=== PATIENT | male | born 1955 | race Caucasian/White ===

== ENCOUNTER 2023-02-13 10:36 | Inpatient (IN) | payer MEDICARE, BC ==
[2023-02-13] VITALS (12 sets, daily range): BP systolic 110–146; BP diastolic 54–100; PULSE 58–60; TEMP 97.7–97.9
[~2023-02-13] VITALS: Ht 185.4 cm; Wt 153.9 kg
[2023-02-13 11:04] LABS: BASO # 0.1 K/mm3 (0.0-0.2); EOS # 0.4 K/mm3 (0.0-0.7); EOS % 3.9 % (0.0-4.0); GRAN # 5.4 K/mm3 (1.4-6.5); GRAN % 51.5 % (42.2-75.2); HEMOGLOBIN 16.1 g/dl (13.5-18.0); LYMPH # 3.7 K/mm3 (1.2-3.4); LYMPH % 35.7 % (20.0-51.0); MEAN CELL VOLUME 93 fl (80.0-100.0); MEAN CORPUSCULAR HEMOGLOBIN 31 pg (27-31); MEAN CORPUSCULAR HGB CONC 34 g/dl (33.0-37.0); MEAN PLATELET VOLUME 10.8 fl (7.4-10.4); MONO # 0.8 K/mm3 (0.1-0.6); MONO % 7.6 % (1.7-9.3); PLATELET COUNT 201 K/mm3 (130-400); RED BLOOD COUNT 5.19 M/mm3 (4.20-5.60); REDCELL DISTRIBUTION WIDTH-CV 13.4 % (11.5-14.5)
[2023-02-13 11:08] LABS: PROTHROMBIN TIME 10.7 SECONDS (9.7-12.8)
[2023-02-13 11:14] LABS: ALBUMIN 4.1 gm/dL (3.4-4.8); BILIRUBIN,TOTAL 0.6 mg/dL (0.2-1.2); CALCIUM 9.6 mg/dL (8.4-10.2); CREATININE, serum 1.2 mg/dL (0.72-1.25); POTASSIUM 4.6 mmol/L (3.5-4.5); TOTAL PROTEIN 7.1 gm/dL (6.2-8.1)
[2023-02-13 11:19] LABS: TROPONIN-I 0.012 ng/mL (0.00-0.033)
[2023-02-13 12:05] LABS: PARTIAL THROMBOPLASTIN TIME 31.1 SECONDS (26.0-37.0)
[2023-02-13] MEDS ORDERED: ZOCOR 40MG40 MG PO (15:22)
[2023-02-13] MEDS ORDERED: TRENTAL 400MG400 MG PO (16:04)
[2023-02-13] MEDS ORDERED: TENORMIN 5050 MG/TAB PO (16:04)
[2023-02-13] MEDS ORDERED: MOBIC15 MG PO (16:04)
--- NOTE | 2023-02-13 17:39 | NUR ---
Most recent HepXa at goal. Heparin continues to infuse at 23ml/hr per protocol.
--- NOTE | 2023-02-13 17:50 | NUR ---
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 SR. VSS. Heparin infusing at 23ml/hr to LAC without s/s complications.
--- NOTE | 2023-02-13 19:00 | NUR ---
PT RESTING IN BED. FAMILY BEDSIDE. PT IS AXOX4. PT IS ON RA. PT IS SR ON TELE. PT ON HEPARIN DRIP AT 2300UNITS/HR, NEXT XA AT 2300. PT HAS CALL LIGHT AND INSTUCTED TO CALL WITH ALL NEEDS. PT EDUCATED ON NPO AT MIDNIGHT AND STRESS TEST IN AM.
--- NOTE | 2023-02-13 20:06 | NUR ---
CHF notebook reviewed and provided to patient. The patient also takes meloxicam for OA- educated patient on NSAID use with anticoagulants-verbalizes understanding. Family at bedside.
[2023-02-14] VITALS (17 sets, daily range): BP systolic 116–166; BP diastolic 69–91; PULSE 59–77; TEMP 97.3–97.9
[2023-02-14 06:53] LABS: BASO # 0.1 K/mm3 (0.0-0.2); EOS # 0.3 K/mm3 (0.0-0.7); EOS % 3.7 % (0.0-4.0); GRAN # 3.9 K/mm3 (1.4-6.5); GRAN % 51.7 % (42.2-75.2); HEMATOCRIT 39.9 % (42.0-52.0); LYMPH # 2.8 K/mm3 (1.2-3.4); LYMPH % 36.5 % (20.0-51.0); MEAN CELL VOLUME 94 fl (80.0-100.0); MEAN CORPUSCULAR HEMOGLOBIN 31 pg (27-31); MEAN CORPUSCULAR HGB CONC 33 g/dl (33.0-37.0); MONO # 0.5 K/mm3 (0.1-0.6); MONO % 6.8 % (1.7-9.3); PLATELET COUNT 167 K/mm3 (130-400); RED BLOOD COUNT 4.26 M/mm3 (4.20-5.60); REDCELL DISTRIBUTION WIDTH-CV 13.7 % (11.5-14.5)
[2023-02-14 07:12] LABS: CREATININE, serum 0.88 mg/dL (0.72-1.25); MAGNESIUM 2.1 mg/dL (1.6-2.6); POTASSIUM 4.3 mmol/L (3.5-4.5)
[2023-02-14 07:17] LABS: HEMOGLOBIN 13.1 g/dl (13.5-18.0)
--- NOTE | 2023-02-14 09:43 | NUR ---
Initial visit attempt; Patient out for Tests, [employer] spoke with his and daughter. Col[employer]ch wished Jairo well and let them all know [employer] is available for their family as well. The family thanked [employer] for looking in on all of them.
--- NOTE | 2023-02-14 13:37 | NUR ---
bone worker met with patient, his and his daughter to discuss discharge planning. Patient lives in [place] with his , Machelle, P# [phone], patient would like his daughter as secondary contact, Faye P# [phone]. PCP is Dr. Domingo, Pharmacy is [facility]. Patient has no issues affording medications at this time. Insurance is Medicare A & B and Blue Cross Blue Shield. Patient does not have a DPOA-HC and considered completing one during his hospital stay but ultimately decided to wait until he meets with his health care attorney to complete it at the same time as his living will. Patient does not have any current DME but reports he needs a CPAP. Patient reports he had a sleep study prior to the hospital stay. Patient reports he is independent with ADLS and has a form of transportation to get to and from appointments. Patient would like to return home at time of discharge. SW contacted home medical to determine if he would be able to order a CPAP during his hospital stay. Patient will need to have had the sleep study in the last year, PCP or doctor order for the CPAP and they would need to see the results of the CPAP for him to receive one. SW will follow up with the patient regarding this information. Discharge Plan: Home
--- NOTE | 2023-02-14 20:30 | NUR ---
Initial shift assessment done- denies pain, denies SOB, tele on -NSR, Up in room on own- QTC was 466 this am,, sotalol dose given tonight- no requests, does not want a snack tonight-
[2023-02-15] VITALS (12 sets, daily range): BP systolic 112–136; BP diastolic 64–78; PULSE 59–64; TEMP 97.5–98.4
--- NOTE | 2023-02-15 05:04 | NUR ---
Quiet night, VSS, no requests.
[2023-02-15 06:57] LABS: BASO # 0.1 K/mm3 (0.0-0.2); BASO % 0.7 % (0.0-2.0); EOS # 0.2 K/mm3 (0.0-0.7); EOS % 3.5 % (0.0-4.0); GRAN # 3.7 K/mm3 (1.4-6.5); GRAN % 54.2 % (42.2-75.2); HEMATOCRIT 40.4 % (42.0-52.0); HEMOGLOBIN 13.3 g/dl (13.5-18.0); LYMPH # 2.3 K/mm3 (1.2-3.4); LYMPH % 32.8 % (20.0-51.0); MEAN CELL VOLUME 94 fl (80.0-100.0); MEAN CORPUSCULAR HEMOGLOBIN 31 pg (27-31); MEAN CORPUSCULAR HGB CONC 33 g/dl (33.0-37.0); MEAN PLATELET VOLUME 11.9 fl (7.4-10.4); MONO # 0.6 K/mm3 (0.1-0.6); MONO % 8.7 % (1.7-9.3); PLATELET COUNT 158 K/mm3 (130-400); RED BLOOD COUNT 4.32 M/mm3 (4.20-5.60); REDCELL DISTRIBUTION WIDTH-CV 13.5 % (11.5-14.5)
[2023-02-15 07:24] LABS: CALCIUM 9.1 mg/dL (8.4-10.2); CREATININE, serum 0.9 mg/dL (0.72-1.25); MAGNESIUM 2.1 mg/dL (1.6-2.6); POTASSIUM 4.2 mmol/L (3.5-4.5)
[2023-02-15] MEDS ORDERED: BETAPACE 80MG80 MG PO (07:59)
[2023-02-15] MEDS ORDERED: COZAAR 50MG50 MG/TAB PO (08:00)
[2023-02-15] MEDS ORDERED: ELIQUIS 5MG PO (08:00)
--- NOTE | 2023-02-15 15:04 | NUR ---
Reviewed CHF Zones and when to call MD. Reviewed daily weights/dry weight/ and when to call MD with 2-3lb weight gain overnight or 5+lbs in a week. Discussed qualifications for outpatient cardiac rehab. Patient is interested. F/u with [facility] - Cardiology/ Dr. Diaz. Staff will f/u in 2-3 weeks to schedule (must wait 6 weeks due to Medicare- insurance). Patient agreeable.
--- NOTE | 2023-02-15 16:36 | NUR ---
stock house worker contacted patient in regards to a sleep study. Patient reports he did not have a sleep study within the last year. SW expressed home medical informed her that he would need a valid sleep study completed within an year with a doctor's order so they could fill the CPAP order. Patient understood and he would be in contact with his PCP to complete an additional sleep study. kosta has no further questions or concerns.
--- NOTE | 2023-02-15 20:30 | NUR ---
Initial shift assessment done-- denies pain/palpitatione/SOB. States doing fine. tele on- sinus,, Did have a small snack tonight before bed-- no requests, very pleasant, ready to go home!
[2023-02-16 00:34] VITALS: BP_SYST 135
[2023-02-16 03:30] VITALS: BP 134/82; PULSE 59; TEMP 97.5
[2023-02-16 04:20] VITALS: BP_SYST 134
--- NOTE | 2023-02-16 05:20 | NUR ---
No changes, VSS
[2023-02-16 06:54] LABS: BASO # 0.1 K/mm3 (0.0-0.2); BASO % 0.8 % (0.0-2.0); EOS # 0.3 K/mm3 (0.0-0.7); EOS % 3.5 % (0.0-4.0); GRAN # 4.2 K/mm3 (1.4-6.5); HEMATOCRIT 40.1 % (42.0-52.0); HEMOGLOBIN 13.5 g/dl (13.5-18.0); LYMPH # 2.5 K/mm3 (1.2-3.4); LYMPH % 32.2 % (20.0-51.0); MEAN CELL VOLUME 93 fl (80.0-100.0); MEAN CORPUSCULAR HEMOGLOBIN 31 pg (27-31); MEAN CORPUSCULAR HGB CONC 34 g/dl (33.0-37.0); MEAN PLATELET VOLUME 11.8 fl (7.4-10.4); MONO # 0.6 K/mm3 (0.1-0.6); MONO % 8.2 % (1.7-9.3); PLATELET COUNT 155 K/mm3 (130-400); RED BLOOD COUNT 4.31 M/mm3 (4.20-5.60); REDCELL DISTRIBUTION WIDTH-CV 13.4 % (11.5-14.5)
[2023-02-16 07:15] LABS: CALCIUM 9.4 mg/dL (8.4-10.2); CREATININE, serum 0.85 mg/dL (0.72-1.25); MAGNESIUM 2.1 mg/dL (1.6-2.6); POTASSIUM 4.4 mmol/L (3.5-4.5)
[2023-02-16 07:42] VITALS: BP 165/92; PULSE 60; TEMP 97.7
[2023-02-16 08:22] VITALS: BP_SYST 165
--- NOTE | 2023-02-16 08:33 | NUR ---
PT DOING WELL THIS MORNING SITTING IN RECLINER ON ASSESSMENT. REMAINS ON TELE SHOWING HEART RATE 65 AND PACED. QTC THIS MORNING WAS 454, SOTALOL GIVEN. PT STATED HE IS READY TO GO HOME TODAY AND IS FEELING WELL.
--- NOTE | 2023-02-16 10:46 | NUR ---
ALL DISCHARGE INSTRUCTIONS AND EDUCATION REVIEWED WITH PT, ALL QUESTIONS ANSWERED AT THAT TIME. IV SITE TO LEFT AC WAS DISCONTINUED, CATHETER TIP INTACT. TELEMETRY BOX WAS DISCONNECTED FROM PT. PT WAS ESCORTED OUT BY PCT. ALL PERSONAL BELONGINGS TAKEN WITH PT.
== END 2023-02-16 10:50 | disposition home or self-care (01) | DRG 309 ==
LOC: COL.ER 10:36 → MEDICAL 11:43
PROVIDERS: Internal Medicine; Physician Assistant; ADMIT Internal Medicine
PROC: 5A2204Z Restoration of Cardiac Rhythm, Single (ICD-10-PCS; principal; 2023-02-13)
DX: I48.0 Paroxysmal atrial fibrillation (principal); Z68.42 Body mass index [BMI] 45.0-49.9, adult; I10 Essential (primary) hypertension; E66.9 Obesity, unspecified; I27.20 Pulmonary hypertension, unspecified; I08.3 Combined rheumatic disorders of mitral, aortic and tricuspid valves; I42.9 Cardiomyopathy, unspecified; E78.5 Hyperlipidemia, unspecified; M19.90 Unspecified osteoarthritis, unspecified site; G47.30 Sleep apnea, unspecified; Z90.49 Acquired absence of other specified parts of digestive tract; Z95.0 Presence of cardiac pacemaker
CPT/HCPCS: A9500-JZ; J1644; J2704; J2785; J7030